=== PATIENT | female | born 1965 | race Two or more races ===

== ENCOUNTER 2019-01-12 20:32 | Emergency (ER) | payer OTHER ==
--- NOTE | 2019-01-12 23:09 | RADIOLOGY REPORT (SQ) ---
EXAM DESCRIPTION: XR TOES 2 OR MORE VIEWS COMPLETED DATE/TME: 01/12/2019 00:00 CLINICAL HISTORY: 53 years, Female, bone pain EXAM DESCRIPTION: CLINICAL HISTORY: bone pain EXAM DESCRIPTION: CLINICAL HISTORY: bone pain COMPARISON: None FINDINGS: 3 view(s) submitted. There are mild degenerative and arthritic changes particularly at the first MTP joint, where there is joint space narrowing and periarticular sclerosis with mild osteophytic formation. Excrescence of bone at the medial aspect of the base of the first distal phalanx is likely also degenerative or sequela of prior trauma. If there is focal pain at this site consider fracture and repeat in 7-10 days would be helpful. No other evidence of fracture or dislocation is identified. Bone marrow attenuation is unremarkable. No radiopaque foreign body is identified. IMPRESSION: Degenerative and arthritic changes. Possible fracture of the first distal phalanx but I suspect a small excrescence of bone is instead also degenerative change or sequela of prior insult. No definite acute fracture or dislocation. COMPARISON: None FINDINGS: 3 view(s) submitted. No fracture or dislocation is identified. Bone marrow attenuation is unremarkable. No radiopaque foreign body is identified. IMPRESSION: No acute fracture or dislocation.
[2019-01-13] MEDS ORDERED: HYDROCODONE/ACETAMINOPHEN 5-325 MG (6 TAB/ER DISP) PO PRN (01:12)
--- NOTE | 2019-01-13 01:15 | ER Document Report ---
HPI - HPI Time Seen by Provider: 01/13/19 00:50 Pain Level: 4 Notes: 53-year-old female patient presenting with left foot injury. Patient reports she was tripped by her dog and excellently kicked a fixed object. She states this occurred just prior to arrival, she has not taken any medications for her symptoms. She reports pain at the left great toe. - REPRODUCTIVE Reproductive: DENIES: : - MUSCULOSKELETAL Musculoskeletal: REPORTS: Extremity pain - DERM Skin Color: Normal Past Medical History - General Information source: Patient - Social History Smoking Status: Never Smoker Frequency of alcohol use: Social Drug Abuse: None Family History: Reviewed & Not Pertinent Patient has suicidal ideation: No Patient has homicidal ideation: No - Medical History Medical History: Negative Surgical Hx: Negative - Immunizations Immunizations up to date: Yes Vertical Provider Document - CONSTITUTIONAL Notes: PHYSICAL EXAMINATION: GENERAL: Well-appearing, well-nourished and in no acute distress. HEAD: Atraumatic, normocephalic. EYES: Pupils equal round extraocular movements intact, conjunctiva are normal. ENT: Nares patent NECK: Normal range of motion LUNGS: No respiratory distress Musculoskeletal: Normal range of motion, cap refill less than 3 seconds, strong dorsalis pedis pulse. NEUROLOGICAL: Normal speech, normal gait. PSYCH: Normal mood, normal affect. SKIN: Ecchymosis noted over left great toe. Mild swelling noted. - INFECTION CONTROL TRAVEL OUTSIDE OF THE [place] IN LAST 30 DAYS: No Course - Re-evaluation Re-evalutation: Toe X-Ray 01/12/19 00:00 IMPRESSION: Degenerative and arthritic changes. Possible fracture of the first distal phalanx but I suspect a small excrescence of bone is instead also degenerative change or sequela of prior insult. No definite acute fracture or dislocation. COMPARISON: None FINDINGS: 3 view(s) submitted. No fracture or dislocation is identified. Bone marrow attenuation is unremarkable. No radiopaque foreign body is identified. IMPRESSION: No acute fracture or dislocation. Patient splinted appropriately, patient tolerated well. Patient to follow-up with orthopedic if not improving - Vital Signs Vital signs: Temp Pulse Resp BP Pulse Ox 97.7 F 75 16 176/88 H 96 01/12/19 22:00 01/12/19 22:00 01/12/19 22:00 01/12/19 22:01/12/19 22:00 Procedures - Immobilization Left foot Immobilizer type: Crutches, Post-op shoe, Other Discharge - Discharge Clinical Impression: Phalanx fracture, foot Qualifiers: Encounter type: initial encounter Toe: great toe Fracture type: closed Phalanx: unspecified phalanx Fracture alignment: nondisplaced Laterality: left Qualified Code(s): S92.405A - Nondisplaced unspecified fracture of left great toe, initial encounter for closed fracture Condition: Stable Disposition: HOME, SELF-CARE Additional Instructions: Fractured Toe You have fractured your toe. Although this fracture doesn't need a cast or splint, emergency evaluation was needed to assess the straightness of the bones and joints. Reduction ("setting") is necessary for toe fractures which are crooked or twisted. A toe fracture will heal in about three weeks. Usually, the fractured toe is taped to the next toe. The second toe acts as a moving splint to protect the broken one. Ice and elevation help during the first 48 hours. You may need crutches at first if walking is painful. When you begin walking, be careful NOT to do things that hurt. If weight bearing is not comfortable within a few days, you may require a special shoe, walking boot, or cast. Call the doctor or return at once if severe swelling, severe pain, or numbness develop in the toe, or if you suspect you may have re-injured it. Ice & Elevation Apply ice packs frequently against the painful area. Many different schedules are recommended, such as "20 minutes on, 20 minutes off" or "one hour ice, two hours rest." If you need to work, you may need to go longer between ice treatments. You should plan to have the area ice packed AT LEAST one-fourth of the time. The ice should be applied over the wrap, tape, or splint, or over a layer of cloth -- not directly against the skin. Some ice bags have a built-in cloth and can be put directly on the skin. Your injured part should be elevated as much as possible over the next 48 hours. Try to keep the injury above the level of the heart. Avoid use of the injured area. Elevation and rest will decrease the swelling. Please take ibuprofen 600 mg every 6 hours. Ice and elevate as outlined above. Use the narcotic pain medication for severe pain only. This should heal up on its own. Please follow-up with orthopedics if not improving over the next week. Referrals: MISHA FISCHER JR, DO [ACTIVE PROVISIONAL STAFF] - Follow up as needed
[2019-01-13 01:48] VITALS: BP 184/92
== END 2019-01-13 01:44 | disposition home or self-care (01) ==
LOC: ER 20:32
DX: S92.405A Nondisplaced unspecified fracture of left great toe, initial encounter for closed fracture (principal); W22.09XA Striking against other stationary object, initial encounter
CPT/HCPCS: 99283

== ENCOUNTER 2019-03-28 19:10 | Emergency (ER) | payer OTHER ==
[2019-03-28] MEDS ORDERED: ACETAMINOPHEN 325 MG TABLET PO ONE (19:31)
--- NOTE | 2019-03-28 19:36 | ER Document Report ---
ED Extremity Problem, Upper - General Chief Complaint: Hand Pain Stated Complaint: SWOLLEN OF LEFT HAND Time Seen by Provider: 03/28/19 19:24 Primary Care Provider: KASIA DENNISON MD [ACTIVE PROVISIONAL STAFF] - Follow up as needed Mode of Arrival: Ambulatory Information source: Patient Notes: 53-year-old female presented to ED for complaint of pain and swelling to the left wrist. She states it does feel firm to the front of the wrist. She states she did have a surgery to this wrist about 15 years ago with plate and screws. She states is very painful to move the wrist. She states she tried elevation ice and ibuprofen with no improvement. She is alert oriented respirations regular nonlabored speaking in full sentences. TRAVEL OUTSIDE OF THE [place] IN LAST 30 DAYS: No - HPI Patient complains to provider of: Pain, Swelling, Left. No: Injury Onset: Yesterday Recent injury: No Where: Home Quality of pain: Achy, Sharp Severity of pain: Moderate, Severe Pain Level: 5 Associated symptoms: Numbness, Tingling Exacerbated by: Movement, Exertion Relieved by: Rest, Positioning Similar symptoms previously: Yes Recently seen / treated by doctor: No - Related Data Allergies/Adverse Reactions: morphine Allergy (Verified 01/12/19 22:05) Home Medications: requip, ibuprofen, lexapro, prilosec, gabapentin, zofran Past Medical History - General Information source: Patient - Social History Smoking Status: Never Smoker Chew tobacco use (# tins/day): No Frequency of alcohol use: None Drug Abuse: None Lives with: Family Family History: Reviewed & Not Pertinent Patient has suicidal ideation: No Patient has homicidal ideation: No - Past Medical History Cardiac Medical History: Reports: None Pulmonary Medical History: Reports: None EENT Medical History: Reports: None Neurological Medical History: Reports: None Endocrine Medical History: Reports: None Renal/ Medical History: Reports: None Malignancy Medical History: Reports: None GI Medical History: Reports: Hx Gastroesophageal Reflux Disease, Hx Endoscopy Musculoskeletal Medical History: Reports Hx Musculoskeletal Deformity, Reports Hx Musculoskeletal Trauma, Reports Hx Restless Leg Syndrome Skin Medical History: Reports None Psychiatric Medical History: Reports: Hx Depression Traumatic Medical History: Reports: Hx Fractures Infectious Medical History: Reports: None Past Surgical History: Reports: Hx Breast Surgery - Breast implants, Hx Section - X2, Hx Orthopedic Surgery - Knee scope, facial sites and screws, left wrist plates and screws, Hx Tubal Ligation - Immunizations Immunizations up to date: Yes Review of Systems - Review of Systems Constitutional: No symptoms reported EENT: No symptoms reported Cardiovascular: No symptoms reported Respiratory: No symptoms reported Gastrointestinal: No symptoms reported Genitourinary: No symptoms reported Female Genitourinary: No symptoms reported Musculoskeletal: Other - Left wrist pain and swelling no injuries Skin: No symptoms reported Hematologic/Lymphatic: No symptoms reported Neurological/Psychological: No symptoms reported -: Yes All other systems reviewed and negative Physical Exam - Vital signs Vitals: Temp Pulse Resp BP Pulse Ox 98.0 F 73 16 164/95 H 100 03/28/19 19:20 03/28/19 19:20 03/28/19 19:20 03/28/19 19:20 03/28/19 19:20 Interpretation: Normal - General General appearance: Appears well, Alert - HEENT Head: Normocephalic, Atraumatic Eyes: Normal Pupils: PERRL - Respiratory Respiratory status: No respiratory distress Chest status: Nontender Breath sounds: Normal Chest palpation: Normal - Cardiovascular Rhythm: Regular Heart sounds: Normal auscultation Murmur: No - Abdominal Inspection: Normal Distension: No distension Bowel sounds: Normal Tenderness: Nontender Organomegaly: No organomegaly - Back Back: Normal, Nontender - Extremities General upper extremity: Normal color, Normal ROM, Normal temperature General lower extremity: Normal inspection, Nontender, Normal color, Normal ROM, Normal temperature, Normal weight bearing. No: Lona's sign Wrist: Tender, Limited ROM. No: Abrasion, Axial load of thumb pain - To pain, Dislocation, Ecchymosis, Instability, Laceration, Navicular tenderness - Neurological Neuro grossly intact: Yes Cognition: Normal Orientation: AAOx4 Mcdermott Coma Scale Eye Opening: Spontaneous Mcdermott Coma Scale Verbal: Oriented Mcdermott Coma Scale Motor: Obeys Commands Joe Coma Scale Total: 15 Speech: Normal Motor strength normal: LUE, RUE, LLE, RLE Sensory: Normal - Psychological Associated symptoms: Normal affect, Normal mood - Skin Skin Temperature: Warm Skin Moisture: Dry Skin Color: Normal Course - Re-evaluation Re-evalutation: 03/28/19 20:23 Discussed x-ray with patient and written report of x-ray given to patient to follow-up with orthopedics. Patient has had previous surgery to this wrist. There is no acute injuries noted. She was treated with a cock-up splint to help with the discomfort. She verbalized understanding and agreement with treatment plan and patient was discharged home. - Vital Signs Vital signs: Temp Pulse Resp BP Pulse Ox 98.0 F 73 16 164/95 H 100 03/28/19 19:20 03/28/19 19:20 03/28/19 19:20 03/28/19 19:20 03/28/19 19:20 - Diagnostic Test Radiology reviewed: Image reviewed, Reports reviewed Discharge - Discharge Clinical Impression: Left wrist pain, Left hand pain Condition: Stable Disposition: HOME, SELF-CARE Additional Instructions: You were seen today for left wrist and hand pain that started yesterday. And discussed with you your x-ray reports. It does not show any new radiological injuries. There is some mild soft tissue swelling. I have treated you with a cock-up splint which will help to decrease the mobility in this wrist until you follow-up with your retirement specialist. Ibuprofen Ibuprofen is an excellent, safe drug for pain control. In addition, it has potent antiinflammatory effects which are beneficial, especially in the treatme nt of injuries, arthritis, or tendonitis. It's best to take ibuprofen with food. Persons with ulcer disease or allergy to aspirin should notify their physician of this before taking ibuprofen. Take the medication exactly as prescribed. Don't take additional doses unless instructed to do so by your doctor. If you develop wheezing, shortness of breath, hives, faintness, stomach pain, vomiting, or dark black stools, return for re-evaluation at once. Ice & Elevation Apply ice packs frequently against the painful area. Many different schedules are recommended, such as "20 minutes on, 20 minutes off" or "one hour ice, two hours rest." If you need to work, you may need to go longer between ice treatments. You should plan to have the area ice packed AT LEAST one-fourth of the time. The ice should be applied over the wrap, tape, or splint, or over a layer of cloth -- not directly against the skin. Some ice bags have a built-in cloth and can be put directly on the skin. Your injured part should be elevated as much as possible over the next 48 hours. Try to keep the injury above the level of the heart. Avoid use of the injured area. Elevation and rest will decrease the swelling. FOLLOW-UP CARE: If you have been referred to a physician for follow-up care, call the physicians office for an appointment as you were instructed or within the next two days. If you experience worsening or a significant change in your symptoms, notify the physician immediately or return to the Emergency Department at any time for re-evaluation. Forms: Elevated Blood Pressure Referrals: KASIA DENNISON MD [ACTIVE PROVISIONAL STAFF] - Follow up as needed
--- NOTE | 2019-03-28 19:52 | RADIOLOGY REPORT (SQ) ---
EXAM DESCRIPTION: WRIST LEFT 3 VIEWS COMPLETED DATE/TIME: 03/28/2019 7:42 pm REASON FOR STUDY: Pain swelling previous surgery COMPARISON: None. NUMBER OF VIEWS: Three views left wrist LIMITATIONS: None. FINDINGS: Osteopenic. Status post scaphoid ectomy with several persistent osseous fragments. Midca rpal fusion with hardware grossly intact. No significant carpal malalignment. Soft tissue swelling, nonspecific. Particularly vol are. No radiopaque foreign body. No acute fracture. OTHER: No other significant finding. IMPRESSION: Chronic post treatment changes. Soft tissue swelling without radiopaque foreign body or acute fracture detected. TECHNICAL DOCUMENTATION: JOB ID: [id number] Reading location - IP/workstation name: [email or web address]
[2019-03-28 20:41] VITALS: BP 149/96
== END 2019-03-28 20:41 | disposition home or self-care (01) ==
LOC: ER 19:10
DX: M79.642 Pain in left hand (principal); M25.532 Pain in left wrist; M79.89 Other specified soft tissue disorders
CPT/HCPCS: 99283

== ENCOUNTER 2019-04-08 18:49 | Emergency (ER) | payer OTHER ==
--- NOTE | 2019-04-08 19:19 | ER Document Report ---
ED Medical Screen (RME) - General Chief Complaint: Arm Pain Stated Complaint: LEFT ARM PAIN, DISCOLORATION Time Seen by Provider: 04/08/19 19:12 TRAVEL OUTSIDE OF THE [place] IN LAST 30 DAYS: No - HPI Notes: 04/08/19 19:17 Patient is a 53-year-old female with no significant past medical history aside from left wrist surgery in the past who presents complaining of bruising noted to her left forearm and numbness to her third through fifth fingers. Patient states that she has been having pain to her wrist and swelling for the past couple weeks, but worsened this past Friday. She is unaware of why she has a bruise there, but started noticing over the past several days. No fever. No history of hematology disease. She is not on any blood thinning medications. No other areas of bruising that were unprovoked. I have treated and performed a rapid initial assessment of this patient. A comprehensive ED assessment and evaluation of the patient, analysis of test results and completion of medical decision making process will be conducted by additional ED providers. PHYSICAL EXAMINATION: GENERAL: Well-appearing, well-nourished and in no acute distress. A&Ox4. Answers questions appropriately. Left forearm: There is somewhat aged bruising to her forearm. Pulses 2+. She does have decrease in station to her third through fifth fingers to palpation. - Related Data Allergies/Adverse Reactions: morphine Allergy (Verified 01/12/19 22:05) Home Medications: Gabapentin, Naproxen, Promethazine, Requip, Omeprazole Past Medical History GI Medical History: Reports: Hx Gastroesophageal Reflux Disease, Hx Endoscopy Musculoskeltal Medical History: Reports Hx Musculoskeletal Deformity, Reports Hx Musculoskeletal Trauma Psychiatric Medical History: Reports: Hx Depression Traumatic Medical History: Reports: Hx Fractures Past Surgical History: Reports: Hx Breast Surgery - Breast implants, Hx Section - X2, Hx Orthopedic Surgery - Knee scope, facial sites and screws, left wrist plates and screws, Hx Tubal Ligation - Immunizations Immunizations up to date: Yes Hx Diphtheria, Pertussis, Tetanus Vaccination: Yes - Did not do the Physical Exam - Vital signs Vitals: Temp Pulse Resp BP Pulse Ox 97.6 F 60 18 193/97 H 99 04/08/19 18:54 04/08/19 18:54 04/08/19 18:54 04/08/19 18:54 04/08/19 18:54 Course - Vital Signs Vital signs: Temp Pulse Resp BP Pulse Ox 97.6 F 60 18 193/97 H 99 04/08/19 18:54 04/08/19 18:54 04/08/19 18:54 04/08/19 18:54 04/08/19 18:54
[2019-04-08 19:46] LABS: ABSOLUTE BASOPHILS # (AUTO) 0.1 10^3/uL (0.0-0.2); ABSOLUTE EOSINOPHILS # (AUTO) 0.3 10^3/uL (0.0-0.6); ABSOLUTE MONOCYTES (AUTO) 0.5 10^3/uL (0.1-1.4); ABSOLUTE NEUT (AUTO) 3.5 10^3/uL (1.7-8.2); EOSINOPHILS % (AUTO) 4.4 % (0-6); HEMATOCRIT 38.8 % (36.0-47.0); HEMOGLOBIN 13.5 g/dL (12.0-15.5); LYMPHOCYTES % (AUTO) 40.9 % (13-45); MEAN CORPUSCULAR HGB CONC 34.7 g/dL (32.0-36.0); MEAN CORPUSCULAR VOLUME 84 fl (80-97); MONOCYTES % (AUTO) 6.3 % (3-13); PLATELET COUNT 346 10^3/uL (150-450); RED BLOOD COUNT 4.65 10^6/uL (3.72-5.28); RED CELL DISTRIBUTION WIDTH 14.5 % (11.5-14.0); SEGMENTED NEUTROPHILS % (AUTO) 47.4 % (42-78); TOTAL CELLS COUNTED % (AUTO) 100 %; WHITE BLOOD COUNT 7.3 10^3/uL (4.0-10.5)
[2019-04-08 19:54] LABS: INTERNATIONAL RATION (INR) 0.96; PROTHROMBIN TIME 12.8 SEC (11.4-15.4)
[2019-04-08 19:55] LABS: PARTIAL THROMBOPLASTIN TIME 29.6 SEC (23.5-35.8)
[2019-04-08 20:05] LABS: ALBUMIN 4.3 g/dL (3.5-5.0); ALKALINE PHOSPHATASE 78 U/L (38-126); ANION GAP 9 (5-19); ASPARTATE AMINO TRANSFERASE 22 U/L (14-36); BILIRUBIN,DIRECT 0.3 mg/dL (0.0-0.4); BILIRUBIN,TOTAL 0.4 mg/dL (0.2-1.3); BLOOD UREA NITROGEN 20 mg/dL (7-20); CALCIUM 9.2 mg/dL (8.4-10.2); CARBON DIOXIDE 29 mmol/L (22-30); CHLORIDE 104 mmol/L (98-107); GLUCOSE 91 mg/dL (75-110); POTASSIUM 4.3 mmol/L (3.6-5.0); TOTAL PROTEIN 7.5 g/dL (6.3-8.2)
[2019-04-08 22:26] VITALS: BP 159/88
--- NOTE | 2019-04-08 22:35 | RADIOLOGY REPORT (SQ) ---
US UPPER EXTREMITY VEINS EXAM DATE: 04/08/2019 7:16 PM MACHINERY MOVER HISTORY: Arm pain and swelling. COMPARISON: None. TECHNIQUE: Grayscale, color Doppler, and spectral Doppler images of the left upper extremity were performed. FINDINGS: The internal jugular, subclavian, axillary, brachial, basilic, and cephalic veins are patent and compressible. Normal color Doppler blood flow and augmentation in the aforementioned veins. The distal veins are also patent. IMPRESSION: No evidence of deep venous thrombosis in the left upper extremity.
--- NOTE | 2019-04-08 22:44 | ER Document Report ---
ED General - General Chief Complaint: Arm Pain Stated Complaint: LEFT ARM PAIN, DISCOLORATION Time Seen by Provider: 04/08/19 19:12 TRAVEL OUTSIDE OF THE [place] IN LAST 30 DAYS: No - HPI Notes: Patient is a 53-year-old female who presents the emergency department for evaluation of edema, bruising, and numbness to the left upper extremity. She has a history of pinning in the left wrist partial fusion several years ago. She states that a few weeks ago she started having swelling in that area. It improved. She is now having bruising to the area that is tracked on her forearm, and states she has numbness to the palmar aspect of her fourth and fifth digits. She denies any injury to the area, but does admit she has been much more active as of late. She is helping to take care of her grandchild, l ifting him frequently. She denies any significant pain. She has no history of blood thinner use, no history of coagulopathy of any sort. - Related Data Allergies/Adverse Reactions: morphine Allergy (Verified 01/12/19 22:05) Home Medications: Gabapentin, Naproxen, Promethazine, Requip, Omeprazole Past Medical History - General Information source: Patient - Social History Smoking Status: Never Smoker Family History: Reviewed & Not Pertinent Patient has suicidal ideation: No Patient has homicidal ideation: No GI Medical History: Reports: Hx Gastroesophageal Reflux Disease, Hx Endoscopy Musculoskeletal Medical History: Reports Hx Musculoskeletal Deformity, Reports Hx Musculoskeletal Trauma, Reports Other - Neuropathy, restless legs Psychiatric Medical History: Reports: Hx Depression Traumatic Medical History: Reports: Hx Fractures Past Surgical History: Reports: Hx Breast Surgery - Breast implants, Hx Section - X2, Hx Orthopedic Surgery - Knee scope, facial sites and screws, left wrist plates and screws, Hx Tubal Ligation - Immunizations Immunizations up to date: Yes Hx Diphtheria, Pertussis, Tetanus Vaccination: Yes - Did not do the Review of Systems - Review of Systems Musculoskeletal: See HPI Neurological/Psychological: See HPI Physical Exam - Vital signs Vitals: Temp Pulse Resp BP Pulse Ox 97.6 F 60 18 193/97 H 99 04/08/19 18:54 04/08/19 18:54 04/08/19 18:54 04/08/19 18:54 04/08/19 18:54 - Notes Notes: Is a very pleasant 53-year-old female who appears her stated age in no acute distress. Head is normocephalic and atraumatic, pupils are equal round, reactive to light. Onychosis moist. Heart regular rate and rhythm, lungs are crusting bilaterally. Examination of the left upper extremity yields a very minimal amount edema over the volar aspect of the wrist. She has extensive ecchymosis that appears soft the entire anterior compartment, tracking over the ulnar aspect of the forearm. She is full range of motion of the shoulder, elbow, fingers, thumb. Patient has limited extension and flexion of the wrist, circumduction limited, but patient states this is baseline secondary to her fus ion. Radial and ulnar pulses are 2+. Patient has diminished sensation to light touch over the palmar aspects of the fourth and fifth digits, as well as partial aspect of the third digit. Normal sensation on the dorsal aspects of these fingers. Capillary refill is brisk. Course - Re-evaluation Re-evalutation: 04/08/19 22:41 Patient presents to the emergency department for evaluation. She has extensive ecchymosis that tracks through the anterior compartment of the forearm. She has some loss of light touch sensation on the distal distribution of the ulnar nerve. She has good pulses, good capillary refill. Her anterior compartment is not tense, she has no signs of compartment syndrome. She had a Doppler which was found to be negative. My suspicion is that she had a small amount of scar tissue, bleeding as a result, and that has led to the extensive ecchymosis she sees here today. She already has an appointment coming up with her orthopedist next week. She is encouraged to rest, watch for signs of increased swelling, keep elevated to minimize swelling, and follow-up with orthopedic. She is to return to the emergency department with worsening or new concerning symptoms of any sort. - Vital Signs Vital signs: Temp Pulse Resp BP Pulse Ox 97.2 F 67 18 159/88 H 97 04/08/19 22:25 04/08/19 22:25 04/08/19 22:25 04/08/19 22:25 04/08/19 22:25 - Laboratory Result Diagrams: 04/08/19 19:25 04/08/19 19:25 Laboratory results interpreted by me: 04/08/19 19:25 RDW 14.5 H - Diagnostic Test Radiology reviewed: Reports reviewed Radiology results interpreted by me: 04/08/19 22:43 04/08/19 19:25 04/08/19 19:25 MCV 84 fl (80-97) 04/08/19 19:25 MCH 29.0 pg (27.0-33.4) 04/08/19 19:25 MCHC 34.7 g/dL (32.0-36.0) 04/08/19 19:25 RDW 14.5 % (11.5-14.0) H 04/08/19 19:25 Seg Neutrophils % 47.4 % (42-78) 04/08/19 19:25 Chloride 104 mmol/L (98-107) 04/08/19 19:25 Carbon Dioxide 29 mmol/L (22-30) 04/08/19 19:25 Anion Gap 9 (5-19) 04/08/19 19:25 Est GFR ( Amer) > 60 (>60) 04/08/19 19:25 Glucose 91 mg/dL (75-110) 04/08/19 19:25 Calcium 9.2 mg/dL (8.4-10.2) 04/08/19 19:25 Total Bilirubin 0.4 mg/dL (0.2-1.3) 04/08/19 19:25 AST 22 U/L (14-36) 04/08/19 19:25 Alkaline Phosphatase 78 U/L (38-126) 04/08/19 19:25 Total Protein 7.5 g/dL (6.3-8.2) 04/08/19 19:25 Albumin 4.3 g/dL (3.5-5.0) 04/08/19 19:25 Venous Doppler Study 04/08/19 19:16 IMPRESSION: No evidence of deep venous thrombosis in the left upper extremity. Discharge - Discharge Clinical Impression: Left forearm ecchymosis, nontraumatic Condition: Stable Disposition: HOME, SELF-CARE Additional Instructions: No clear cause was found for your bruising today. It is likely that a small amount of scar tissue has broken loose causing this symptom. Please follow-up with your orthopedic doctor next week. Take your regular medications at home as prescribed, take the Naprosyn with food. Return to the emergency department with worsening or new concerning symptoms of any sort.
== END 2019-04-08 22:52 | disposition home or self-care (01) ==
LOC: ER 18:49
DX: R58 Hemorrhage, not elsewhere classified (principal); R20.0 Anesthesia of skin; R60.0 Localized edema; Z98.1 Arthrodesis status; K21.9 Gastro-esophageal reflux disease without esophagitis; Z79.899 Other long term (current) drug therapy; Z79.1 Long term (current) use of non-steroidal anti-inflammatories (NSAID); Z88.6 Allergy status to analgesic agent; Z88.5 Allergy status to narcotic agent
CPT/HCPCS: 36415; 80053; 85025; 85610; 85730; 93971; 99284

== ENCOUNTER 2019-11-19 06:56 | Day surgery (SDC) | payer OTHER ==
[~2019-11-19 06:56] MED LIST: CEFAZOLIN 2 GM/D5W RTU 2 GM/50 ML RTUPB IV ONE; CEFAZOLIN 2 GM/D5W RTU 2 GM/50 ML RTUPB IV PRN; DEXAMETHASONE SOD PHOSPHATE INJ 4 MG/1 ML VIAL ONE; FENTANYL CITRATE INJ/PF 100 MCG/2 ML AMPUL ONE; LACTATED RINGERS 1000 ML IV PRN; MIDAZOLAM 2 MG/2 ML INJ ONE; ONDANSETRON HCL INJ/PF 4 MG/2 ML SDV ONE; PROPOFOL INJ 200 MG/20 ML VIAL IV ONE
[2019-11-19 08:07] LABS: ABSOLUTE BASOPHILS # (AUTO) 0.1 10^3/uL (0.0-0.2); ABSOLUTE EOSINOPHILS # (AUTO) 0.2 10^3/uL (0.0-0.6); ABSOLUTE LYMPHOCYTES (AUTO) 1.8 10^3/uL (0.5-4.7); ABSOLUTE MONOCYTES (AUTO) 0.4 10^3/uL (0.1-1.4); EOSINOPHILS % (AUTO) 3.3 % (0-6); HEMATOCRIT 36.5 % (36.0-47.0); HEMOGLOBIN 13.1 g/dL (12.0-15.5); LYMPHOCYTES % (AUTO) 27.7 % (13-45); MEAN CORPUSCULAR HGB CONC 35.8 g/dL (32.0-36.0); MEAN CORPUSCULAR VOLUME 84 fl (80-97); MONOCYTES % (AUTO) 6.7 % (3-13); PLATELET COUNT 291 10^3/uL (150-450); RED BLOOD COUNT 4.36 10^6/uL (3.72-5.28); RED CELL DISTRIBUTION WIDTH 13.6 % (11.5-14.0); SEGMENTED NEUTROPHILS % (AUTO) 61.3 % (42-78); TOTAL CELLS COUNTED % (AUTO) 100 %; WHITE BLOOD COUNT 6.6 10^3/uL (4.0-10.5)
[2019-11-19] MEDS ORDERED: OXYCODONE-ACETAMINOPHEN 5-325 MG TABLET PO PRN ×2 (09:25→14:00)
[2019-11-19] MEDS ORDERED: MEPERIDINE HCL/PF INJ 25 MG/1 ML DISP.SYRIN IV PRN (09:25)
[2019-11-19] MEDS ORDERED: PROMETHAZINE HCL INJ 25 MG/1 ML VIAL IV PRN ×2 (09:25)
[2019-11-19] MEDS ORDERED: FENTANYL CITRATE INJ/PF 100 MCG/2 ML AMPUL IV PRN ×3 (09:25)
[2019-11-19] MEDS ORDERED: DIPHENHYDRAMINE HCL 50 MG/ML VIAL IV PRN (09:25)
--- NOTE | 2019-11-19 10:12 | Operative Report ---
Operative Report DATE OF SURGERY: 11/19/19 PREOPERATIVE DIAGNOSIS: 1. Left cubital tunnel syndrome. 2. Left carpal tunn el syndrome POSTOPERATIVE DIAGNOSIS: 1. Left cubital tunnel syndrome. 2. Left carpal tunnel syndrome OPERATION: 1. Left ulnar nerve decompression with anterior transposition. 2. Left carpal tunnel release, separate incision SURGEON: KASIA DENNISON ANESTHESIA: GA COMPLICATIONS: None ESTIMATED BLOOD LOSS: Minimal PROCEDURE: Indications for procedure: The patient is a 54-year-old woman with longstanding cubital tunnel syndrome and carpal tunnel syndrome of the left arm. She has failed nonoperative treatment. Description of procedure: Following the induction of a general anesthetic and administration of 2 g of Ancef, the patient was positioned supine on the operating room table. All bony prominences were padded. A tourniquet was placed proximally on the left arm but not inflated. Left upper extremity was sterilely prepped with ChloraPrep and draped in standard fashion. The arm was exsanguinated and the tourniquet inflated 250 mmHg. We first turned our attention to the ulnar nerve release and transposition. A 6 cm incision was made centered between the medial epicondyle and olecranon fossa. A sharp incision was performed through skin. Blunt dissection was performed to the subcutaneous tissue with care taken to protect superficial branching nerves. The ulnar nerve was identified proximal to the medial epicondyle and released. The cubital tunnel retinaculum was then released as well distally into the flexor pronator fascia. The medial intermuscular septum was then excised. A fascial sleeve from the flexor pronator musculature was created in a Z- lengthening fashion. The ulnar nerve was then easily brought anterior to the medial epicondyle and held in place with the Z-lengthening flexor pronator fascia. The elbow was taken through a full range of motion with good excursion of the ulnar nerve and no new areas of compression. The wound was then copiously irrigated. The subcutaneous tissue was closed with 2-0 Vicryl and the skin was reapproximated with a subcuticular 3-0 Monocryl. We next turned our attention to the carpal tunnel release. A 2 cm incision was made in the palm based distally on the maximally abducted thumb in line with the third fourth digital interspace. A sharp incision was made through skin. Sharp incision of the fascia was then performed down to the median nerve. The wrist was flexed allowing direct visualization of the proximal margin of the carpal tunnel and flexor fascia of the forearm. This was released under direct visualization. Distally the skin was elevated allowing release of the carpal tunnel to the level of the superficial palmar arch. At the conclusion the motor branch the median nerve was specifically identified. t was completely released and intact. The wound was then copiously irrigated. The skin was reapproximated with 3-0 Monocryl suture. A bulky sterile dressing was applied from the brachium to the hand. The patient tolerated procedure well without complication was brought recovery in stable condition.
[2019-11-19] MEDS ORDERED: BUPIVACAINE HCL 0.5 % INJ/PF 30 ML SDV ONE (10:16)
[2019-11-19] MEDS: FENTANYL CITRATE INJ/PF 100 MCG/2 ML AMPUL ONE ×2 (10:25→10:35)
[2019-11-19] MEDS ORDERED: ONDANSETRON HCL INJ/PF 4 MG/2 ML SDV IV PRN (10:32)
[2019-11-19] MEDS ORDERED: OXYCODONE-ACETAMINOPHEN 5-325 MG TABLET ONE (11:09)
[2019-11-19 12:50] VITALS: BP 120/77
== END 2019-11-19 13:05 | disposition home or self-care (01) ==
LOC: OROUT 06:56
PROVIDERS: ATTEND Orthopaedic Surgery
DX: G56.02 Carpal tunnel syndrome, left upper limb (principal); G56.22 Lesion of ulnar nerve, left upper limb; G47.33 Obstructive sleep apnea (adult) (pediatric); Z03.818 Encounter for observation for suspected exposure to other biological agents ruled out
CPT/HCPCS: 64721; 64718; 36415; 85025; 87635; 81025; 01810; J2250; J3490; J1100; J3010; J2405; J2704; J0690; C9803; 1810